=== PATIENT | male | born 1955 | race Caucasian/White ===

== ENCOUNTER 2019-10-18 02:50 | Day surgery (SDC) | payer BC ==
[2019-10-18] VITALS (8 sets, daily range): BP systolic 107–133; BP diastolic 53–86
[~2019-10-18] VITALS: Ht 180.3 cm; Wt 125.6 kg
--- OUTSIDE RECORDS SUMMARY | 2019-10-18 02:56 | XMS REPORT | Continuity of Care Document ---
Author Organization Unknown Address Unknown Phone Unavailable Allergies There is no data. Medications There is no data. Problems Date Dx Coded Attending Type Code Diagnosis Diagnosed By 02/13/2015 AARON ALMANZA DO Ot 724 .1 06/17/2016 AARON ALMANZA DO Ot 724 .1 PAIN IN THORACIC SPINE 06/18/2016 AARON ALMANZA DO Ot L98 .9 DISORDER OF THE SKIN AND SUBCUTANEOUS TI Procedures There is no data. Results Test Result Range Microscopic examination by JAZLYN preparati on - 06/17/16 10:15 JAZLYN RESULT NEGATIVE; NO FUNGAL ELEMENTS OBSERVED NRG Encounters ACCT No. Visit Date/Time Discharge Status Pt. Type Provider Facility Loc./Unit Complaint [id number] 06/17/2016 10:24:00 016 23:59:59 CLS Outpatient AARON ALMANZA DO [facility] LAB SKIN LESION [id number] 06/05/2016 09:26:00 016 23:59:59 CLS Preadmit DIONNE CEDENO, JESSI Navarrete [facility] WOUNDCARE [id number] 01/31/2015 15:59:00 015 23:59:59 CLS Outpatient AARON ALMANZA DO [facility] RAD THORACIC PAIN
[2019-10-18 03:12] LABS: BASOPHILS # (AUTO) 0.1 10^3/uL (0.0-0.1); BASOPHILS % (AUTO) 1 % (0-10); EOSINOPHILS # (AUTO) 1.2 10^3/uL (0.0-0.3); EOSINOPHILS % (AUTO) 7 % (0-10); HEMATOCRIT 47 % (40-54); LYMPHOCYTES # (AUTO) 4.2 X 10^3 (1.0-4.0); LYMPHOCYTES % (AUTO) 25 % (12-44); MEAN CORPUSCULAR HEMOGLOBIN 32 PG (25-34); MEAN CORPUSCULAR HGB CONC 34 G/DL (32-36); MEAN CORPUSCULAR VOLUME 95 FL (80-99); MONOCYTES # (AUTO) 1.6 X 10^3 (0.0-1.0); MONOCYTES % (AUTO) 9 % (0-12); NEUTROPHILS % (AUTO) 59 % (42-75); PLATELET COUNT 272 10^3/uL (130-400); RED CELL DISTRIBUTION WIDTH 13.7 % (10.0-14.5)
[2019-10-18] MEDS ORDERED: ASPIRIN 81 MG CHEW (CHILDREN'S ASA) PO ONE (03:15)
[2019-10-18] MEDS ORDERED: dilTIAZem DRIP PRE-MIX 125 ML IV SCH (03:15)
[2019-10-18 03:23] LABS: INR 0.9 (0.8-1.4); PROTHROMBIN TIME PATIENT 12.9 SEC (12.2-14.7)
[2019-10-18 03:32] LABS: ALANINE AMINOTRANSFERASE 45 U/L (0-55); ALBUMIN 4.5 GM/DL (3.2-4.5); ALKALINE PHOSPHATASE 72 U/L (40-136); BILIRUBIN,TOTAL 0.6 MG/DL (0.1-1.0); BUN/CREATININE RATIO 21; CALCIUM 9.7 MG/DL (8.5-10.1); CARBON DIOXIDE 24 MMOL/L (21-32); CHLORIDE 102 MMOL/L (98-107); CREATININE SERUM 1.17 MG/DL (0.60-1.30); GFR ESTIMATED > 60; GLUCOSE 209 MG/DL (70-105); MAGNESIUM 1.6 MG/DL (1.6-2.4); POTASSIUM 4.7 MMOL/L (3.6-5.0); SODIUM 139 MMOL/L (135-145); TOTAL PROTEIN 7.8 GM/DL (6.4-8.2)
[2019-10-18 03:34] LABS: BAND NEUTROPHILS 2 %; EOSINOPHILS % (MANUAL) 8 %; LYMPHOCYTES % (MANUAL) 19 %; MONOCYTES % (MANUAL) 10 %; NEUTROPHILS % (MANUAL) 61 %; RBC MORPH NORMAL
[2019-10-18] MEDS ORDERED: NS IV 1000 ML 1,000 ML IV ONE (03:40)
[2019-10-18 03:52] LABS: TSH (THYROID ANALYZER) 3.52 UIU/ML (0.35-4.94)
[2019-10-18] MEDS ORDERED: APIXABAN 5 MG (ELIQUIS) TABLET ONE (04:16)
--- NOTE | 2019-10-18 04:32 | ED Cardiac General ---
History of Present Illness General Chief Complaint: Chest Pain Stated Complaint: CP Nursing Triage Note: PT PRESENTS TO THE ED C/O HEART PALPITATIONS AND DIZZYNESS WITH RAPID HEART RATE. PT DENIES KNOWN HX OF SVT OR AFIB. DENIES CHEST PAIN, VERBALIZES CHEST PRESSURE AND FEELING HIS CHEST POUND IN HIS CHEST Source: patient Exam Limitations: no limitations (MARINA LAZO MD) History of Present Illness Date Seen by Provider: Oct 18, 2019 Time Seen by Provider: 02:[address] Diez presents to the emergency room with complaints of tachycardia since early in the day yesterday. He has had some mild associated chest pressure. He has no history of arrhythmia or cardiac disease. He has some associated dizziness. He found his heart rate to be in the 160-180 range at home. He recalls missing his usual dose of atenolol 100 mg on Friday night and Friday morning. He then took a 100 mg dose around noon yesterday. He then took 2 separate doses of 50 mg in the evening hours. NTG SL APPLICATIONS TESTER: No ASA po APPLICATIONS TESTER: No (MARINA LAZO MD) Allergies and Home Medications Allergies Coded Allergies: No Known Drug Allergies (Unverified , 10/18/19) Patient Home Medication List Home Medication List Reviewed: Yes (MARINA LAZO MD) Review of Systems Review of Systems Constitutional: no symptoms reported EENTM: No Symptoms Reported Respiratory: No Symptoms Reported Cardiovascular: See HPI Gastrointestinal: No Symptoms Reported Genitourinary: No Symptoms Reported Musculoskeletal: no symptoms reported Skin: no symptoms reported Psychiatric/Neurological: No Symptoms Reported Endocrine: No Symptoms Reported Hematologic/Lymphatic: No Symptoms Reported (MARINA LAZO MD) Past Xamkqpa-Rhvzba-Vpimjb Hx Past Med/Social Hx: Reviewed and Corrections made (MARINA LAZO MD) Patient Social History Alcohol Use: Denies Use Recreational Drug Use: No Smoking Status: Never a Smoker Recent Foreign Travel: No Contact w/Someone Who Travel: No Recent Infectious Disease Expo: No Recent Hopitalizations: No Physical Abuse: No Sexual Abuse: No Mistreated: No Fear: No (MARINA LAZO MD) Immunizations Up To Date Tetanus Booster (TDap): Unknown PED Vaccines UTD: Yes (MARINA LAZO MD) Seasonal Allergies Seasonal Allergies: No (MARINA LAZO MD) Past Medical History Surgeries: Yes (SOFT PALLET REPAIR) Respiratory: No Cardiac: Yes Hypertension Neurological: No Genitourinary: No Gastrointestinal: No Musculoskeletal: Yes Gout Endocrine: Yes Diabetes, Non-Insulin dep Are Your Blood Sugars Over 250: No HEENT: No Cancer: No Psychosocial: Yes (OCD) (MARINA LAZO MD) Physical Exam Vital Signs Vital Signs - First Documented (CHATO LEVIN MD) Vital Signs Capillary Refill : Less Than 3 Seconds (MARINA LAZO MD) Height, Weight, BMI Height: '" Weight: lbs. oz. kg; 34.00 BMI Method: General Appearance: No Apparent Distress, WD/WN, Obese HEENT: PERRL/EOMI, Normal ENT Inspection Neck: Normal Inspection; No JVD Respiratory: Lungs Clear, Normal Breath Sounds, No Accessory Muscle Use, No Respiratory Distress Cardiovascular: No Edema, No Murmur, Tachycardia Gastrointestinal: Soft, Distended Extremity: Normal Inspection, No Pedal Edema Neurologic/Psychiatric: Alert, Oriented x3, No Motor/Sensory Deficits, Normal Mood/Affect, playback operator II-XII Norm as Tested Skin: Normal Color, Warm/Dry (MARINA LAZO MD) Progress/Results/Core Measures Results/Orders Lab Results Laboratory Tests Test 10/18/19 03:00 10/18/19 03:02 10/18/19 06:00 Range/Units White Blood Count 17.0 H 4.3-11.0 10^3/uL Red Blood Count 4.96 4.35-5.85 10^6/uL Hemoglobin 16.0 13.3-17.7 G/DL Hematocrit 47 40-54 % Mean Corpuscular Volume 95 80-99 FL Mean Corpuscular Hemoglobin 32 25-34 PG Mean Corpuscular Hemoglobin Concent 34 32-36 G/DL Red Cell Distribution Width 13.7 10.0-14.5 % Platelet Count 272 130-400 10^3/uL Mean Platelet Volume 11.0 H 7.4-10.4 FL Neutrophils (%) (Auto) 59 42-75 % Lymphocytes (%) (Auto) 25 12-44 % Monocytes (%) (Auto) 9 0-12 % Eosinophils (%) (Auto) 7 0-10 % Basophils (%) (Auto) 1 0-10 % Neutrophils # (Auto) 10.0 H 1.8-7.8 X 10^3 Lymphocytes # (Auto) 4.2 H 1.0-4.0 X 10^3 Monocytes # (Auto) 1.6 H 0.0-1.0 X 10^3 Eosinophils # (Auto) 1.2 H 0.0-0.3 10^3/uL Basophils # (Auto) 0.1 0.0-0.1 10^3/uL Neutrophils % (Manual) 61 % Lymphocytes % (Manual) 19 % Monocytes % (Manual) 10 % Eosinophils % (Manual) 8 % Band Neutrophils 2 % Blood Morphology Comment NORMAL Prothrombin Time 12.9 12.2-14.7 SEC INR Comment 0.9 0.8-1.4 Activated Partial Thromboplast Time 30 24-35 SEC Sodium Level 139 135-145 MMOL/L Potassium Level 4.7 3.6-5.0 MMOL/L Chloride Level 102 98-107 MMOL/L Carbon Dioxide Level 24 21-32 MMOL/L Anion Gap 13 5-14 MMOL/L Blood Urea Nitrogen 25 H 7-18 MG/DL Creatinine 1.17 0.60-1.30 MG/DL Estimat Glomerular Filtration Rate > 60 BUN/Creatinine Ratio 21 Glucose Level 209 H 70-105 MG/DL Calcium Level 9.7 8.5-10.1 MG/DL Corrected Calcium 9.3 8.5-10.1 MG/DL Magnesium Level 1.6 1.6-2.4 MG/DL Total Bilirubin 0.6 0.1-1.0 MG/DL Aspartate Amino Transf (AST/SGOT) 35 H 5-34 U/L Alanine Aminotransferase (ALT/SGPT) 45 0-55 U/L Alkaline Phosphatase 72 40-136 U/L Myoglobin 69.8 10.0-92.0 NG/ML Troponin I 0.036 H 0.064 H <0.028 NG/ML Total Protein 7.8 6.4-8.2 GM/DL Albumin 4.5 3.2-4.5 GM/DL TSH [place] Testing 3.52 0.35-4.94 UIU/ML Glucometer 187 H 70-110 MG/DL (CHATO LEVIN MD) Medications Given in ED Current Medications Medications Dose Ordered Sig/Erica Route Start Time Stop Time Status Last Admin Dose Admin Aspirin 324 mg ONCE ONCE PO 10/18/19 03:15 10/18/19 03:16 DC 10/18/19 03:22 324 MG Diltiazem HCl 10 mg ONCE ONCE IVP 10/18/19 03:15 10/18/19 03:16 DC 10/18/19 03:07 10 MG Sodium Chloride 500 ml @ 0 mls/hr Q0M ONCE IV 10/18/19 04:58 10/18/19 04:59 DC 10/18/19 05:18 500 MLS/HR Sodium Chloride 1,000 ml @ 0 mls/hr Q0M ONCE IV 10/18/19 03:40 10/18/19 03:42 DC 10/18/19 03:30 1,000 MLS/HR (CHATO LEVIN MD) Vital Signs/I&O 10/18/19 10/18/19 02:52 02:52 Temp 36.6 Pulse 147 Resp 22 B/P (MAP) 132/98 (109) Pulse Ox 98 O2 Delivery Room Air Room Air (CHATO LEVIN MD) Blood Pressure Mean: 109 Progress Progress Note : Time: 04:30 Progress Note Patient was seen and examined. Heart rhythm was a narrow complex tachycardia at approximately 150 bpm. Atrial flutter was suspected. A Cardizem bolus was administered and patient immediately converted into a sinus rhythm with a bradycardia around 50 bpm. He remains in a sinus bradycardia now. Symptoms have improved significantly. Blood pressure was low normotensive. He received a liter of IV fluid which improved his blood pressures. I discussed the case with Dr. Wang. Given the patient's diabetes, he feels it would be best to anticoagulate. Eliquis has been ordered. He also recommended a 3 hour troponin. If the troponin remains fairly low, outpatient stress testing may be performed. If there is a significant jump in troponin, he recommends admission. (MARINA LAZO MD) Progress Note : Progress Note Assumed care of the patient at 0610 pending troponin recheck. This has been drawn now. Patient chest pain-free and in sinus rhythm currently. He is receiving IV fluid due to soft pressures after Cardizem administration. 0646: Patient is without chest pain. Blood pressure 117/60s currently. I did discuss the case with Dr. Wang due to patient's troponin increasing to 0.064. Given his underlying hypertension, diabetes and now elevating troponin, admission is indicated. He will do Lexiscan nuclear stress test today to further risk stratify the patient. I did discuss this with the nursing boat and plant utility supervisor who will set up the orders for that to get the appropriate equipment. I did discuss this with the patient and he agrees with plan for admission, observation status. We will keep him nothing by mouth for now. Dr. Wang will take him primary. Patient agrees to plan. (CHATO LEVIN MD) EKG #1: EKG Time: 02:54 Rate: 146 Rhythm: atrial tachycardia Comment Narrow complex tachycardia with no ST elevation or depression. Likely represents atrial flutter. EKG #2: EKG Time: 03:07 Rate: 59 Rhythm: S.Eric ECG Impression: Sinus Bradycardia Comment Borderline sinus bradycardia with right bundle branch block. No ST elevation or depression. No axis deviation. (MARINA LAZO MD) Diagnostic Imaging Diagonstic Imaging: Xray Plain Films/CT/US/NM/MRI: chest Comments Mild pulmonary venous congestion. No other acute abnormalities. Report not yet available. (MARINA LAZO MD) Departure Communication (Admissions) Time/Spoke to Admitting Phy: 06:46 (CHATO LEVIN MD) Impression Primary Impression: Atrial tachycardia Additional Impressions: Chest pressure Elevated troponin Disposition: ADMITTED INPATIENT Condition: Stable Admissions Decision to Admit Reason: Admit from ER (General) Decision to Admit/Date: Oct 18, 2019 Time/Decision to Admit Time: 06:46 (CHATO LEVIN MD) Departure-Patient Inst. Referrals: NO,LOCAL PHYSICIAN (PCP/Family) Primary Care Physician MARINA LAZO MD Oct 18, 2019 04:32 CHATO LEVIN MD Oct 18, 2019 07:12
[2019-10-18] MEDS ORDERED: NS IV 500 ML 500 ML IV ONE (04:58)
[2019-10-18] MEDS ORDERED: APIXABAN 5 MG (ELIQUIS) TABLET PO SCH ×3 (09:00→21:00)
[2019-10-18] MEDS ORDERED: LACTATED RINGERS 1,000 ML IV SCH ×2 (09:45→10:00)
[2019-10-18] MEDS ORDERED: REGADENOSON 0.4 MG/5 ML SYR (LEXISCAN) IV ONE ×2 (09:45→11:31)
[2019-10-18] MEDS ORDERED: CATHETER FLUSH 10 ML SYR IV PRN (11:00)
--- NOTE | 2019-10-18 12:05 | Diagnostic Imaging Report ---
EXAMINATION: Chest radiograph, portable AP view. DATE: 10/18/2019 4:10 AM hours. INDICATION: 63-year-old male, heart palpitations. COMPARISON: January 31, 2015. FINDINGS: Given differences in technique, the heart size and mediastinal contours are grossly unchanged. There is no identified pneumothorax. There is no large pleural effusion. There is no identified focal airspace consolidation. There are probable left carotid vascular calcifications. IMPRESSION: 1. No identified acute cardiopulmonary abnormality. Dictated by: Dictated on workstation # [id number]
--- NOTE | 2019-10-18 12:56 | History & Physicial-Cardiolgy ---
HPI-Cardiology Cardiology Consultation: Date of Consultation 10/18/19 Date of Admission Attending Physician Jefferson Wang MD Admitting Physician Katherine,Local Physician Consulting Physician Jefferson WANG MD HPI: Time Seen by a Provider: 12:30 Chief Complaint: Chest heaviness, palpitation, dizziness Dr Diez presented to the ER with complains of chest pressure/heaviness with palpitations/tachycardia. He denies active smoking. No pertinent family history. He has no previous history of cardiac disease. He does have history of diabetes and hypertension. Tachycardia was associated with dizziness. According to him his heart rate was in the 160s. He is on atenolol as an outpatient and had missed 2 dosages. When he came to the ER he was found to be in narrow complex tachycardia which was likely typical atrial flutter. He converted on his own to sinus rhythm with right bundle-branch block and T-wave inversions in the anterior precordial leads. He was also found to have positive troponin. Review of Systems-Cardiology Review of Systems Constitutional: As described under HPI; No As described under HPI, No no symptoms reported, No chills, No fever, No lightheadedness Eyes: No As described under HPI, No no symptoms reported, No blindness, No blurred vision, No contact lenses, No drainage, No decreased acuity, No foreign body sensation, No pain, No vision change Ears/Nose/Throat: No As described under HPI, No no symptoms reported, No chronic hearing loss, No ear discharge, No ear pain, No nasal drainage, No ulcerations Respiratory: No no symptoms reported; As described under HPI; No As described under HPI, No cough, No orthopnea, No shortness of breath, No SOB with excertion Cardiovascular: No no symptoms reported; As described under HPI; No As described under HPI; chest pain; No edema, No irregular heart rate, No lightheadedness; palpitations Gastrointestinal: No no symptoms reported, No As described under HPI, No abdomen distended, No abdominal pain, No blood streaked bowels, No constipation, No diarrhea, No nausea, No vomiting, No stool coloration changes Genitourinary: No As described under HPI, No burning, No dysuria, No discharge, No frequency, No flank pain, No hematuria, No urgency Skin: No rash, No skin related problems, No ulcerations Psychiatric/Neurological: No anxiety, No depression, No seizure, No focal weakness, No syncope Hematologic: No bleeding abnormalities LXZ-Qrtdze-Xghymy Hx Patient Social History Alcohol Use: Denies Use Recreational Drug Use: No Smoking Status: Never a Smoker Recent Foreign Travel: No Recent Infectious Disease Expo: No Hospitalization with Isolation: Denies Immunizations Up To Date Tetanus Booster (TDap): Unknown Date of Influenza Vaccine: Apr 20, 2019 Past Medical History PMH As described under Assessment. Allergies and Home Medications Allergies Coded Allergies: No Known Drug Allergies (Unverified , 10/18/19) Patient Home Medication List Home Medication List Reviewed: Yes Physical Exam-Cardiology Physical Exam Vital Signs/I&O 10/18/19 10/18/19 10/18/19 10/18/19 09:17 09:32 09:38 09:59 Temp 36.0 Pulse 61 66 60 Resp 18 18 B/P (MAP) 109/71 133/86 Pulse Ox 98 100 100 O2 Delivery Room Air Room Air 10/18/19 10/18/19 11:00 13:30 Pulse 63 Resp 16 B/P (MAP) 119/80 (93) Pulse Ox 93 O2 Delivery Room Air Room Air Capillary Refill : Less Than 3 Seconds Constitutional: appears stated age, AAO x 3; No apparent distress; well- developed, well-nourished HEENT: PERRL; No discharge; hearing is well preserved, oral hygience is good; No ulceration, No xanthelasmas are seen Neck: No carotid bruit; carotid pulses are 2 + bilaterally Respiratory: chest is bilaterally symmetric, lungs clear to auscultation Cardiovascular: regular rate-rhythm, S1 and S2 Gastrointestinal: soft, audible bowel sounds; No spleenomegaly Rectal: deferred Extremities: normal range of motion, non-tender, normal inspection; No clubbing, No cyanosis; no lower extremity edema bilateral; No significant edema Neurologic/Psychiatric: no motor/sensory deficits, alert, normal mood/affect, oriented x 3, power is 5/5 both on sides Skin: normal color; No rash, No ulcerations Data Review Labs Laboratory Tests 10/18/19 03:00: White Blood Count 17.0H, Red Blood Count 4.96, Hemoglobin 16.0, Hematocrit 47, Mean Corpuscular Volume 95, Mean Corpuscular Hemoglobin 32, Mean Corpuscular Hemoglobin Concent 34, Red Cell Distribution Width 13.7, Platelet Count 272, Mean Platelet Volume 11.0H, Neutrophils (%) (Auto) 59, Lymphocytes (%) (Auto) 25, Monocytes (%) (Auto) 9, Eosinophils (%) (Auto) 7, Basophils (%) (Auto) 1, Neutrophils # (Auto) 10.0H, Lymphocytes # (Auto) 4.2H, Monocytes # (Auto) 1.6H, Eosinophils # (Auto) 1.2H, Basophils # (Auto) 0.1, Neutrophils % (Manual) 61, Lymphocytes % (Manual) 19, Monocytes % (Manual) 10, Eosinophils % (Manual) 8, Band Neutrophils 2, Blood Morphology Comment NORMAL, Prothrombin Time 12.9, INR Comment 0.9, Activated Partial Thromboplast Time 30, Sodium Level 139, Potassium Level 4.7, Chloride Level 102, Carbon Dioxide Level 24, Anion Gap 13, Blood Urea Nitrogen 25H, Creatinine 1.17, Estimat Glomerular Filtration Rate > 60, BUN/Creatinine Ratio 21, Glucose Level 209H, Calcium Level 9.7, Corrected Calcium 9.3, Magnesium Level 1.6, Total Bilirubin 0.6, Aspartate Amino Transf (AST/SGOT) 35H, Alanine Aminotransferase (ALT/SGPT) 45, Alkaline Phosphatase 72, Myoglobin 69.8, Troponin I 0.036H, Total Protein 7.8, Albumin 4.5, TSH [place] Testing 3.52 10/18/19 03:02: Glucometer 187H 10/18/19 06:00: Troponin I 0.064H ECG Impression ECG Comment First EKG shows typical atrial flutter with 2-1 AV block. Second EKG shows sinus rhythm with right bundle-branch block and anterior T-wave inversions. A/P-Cardiology Assessment/Admission Diagnosis Non-STEMI, Typical atrial flutter, Diabetes, Hypertension, Leukocytosis, Mildly elevated LFTs Admission Status: Observation Plan Non-STEMI, borderline positive troponin with an upward trend. Considering that the patient has diabetes and hypertension with chest pain I have requested a nuclear stress test. If the nuclear stress test is abnormal, coronary angiography will be recommended. Typical atrial flutter, spontaneous conversion to sinus rhythm. Patient has a CHADSVASC of 2 due to diabetes and hypertension. Therefore oral anticoagulation is superior to aspirin alone. This was discussed at length with the patient. We will start Eliquis 5 mg twice a day. Typical atrial flutter ablation was recommended however due to the current COVID-19 situation, elective EP procedures are deferred to a later date. The patient understands the situation. I also spoke to him that at times patients that have typical atrial flutter can develop atrial fibrillation in the future. Diabetes, hold metformin just in case the patient needs an angiogram. Hypertension, atenolol. Leukocytosis, unclear etiology. Patient is afebrile. No infectious source. Borderline elevated LFTs, unclear etiology. Clinical Quality Measures AMI/AHF: ASA po Prior to arrival: No DVT/VTE Risk/Contraindication: Risk Factor Score Per Nursin RFS Level Per Nursing on Admit: 3=High Jefferson WANG MD Oct 18, 2019 12:56
[2019-10-18] MEDS: inSUlin ASPART (NovoLOG) 1 UNIT/0.01 ML (CHARGE PER UNIT) SC SCH ×2 (13:11→18:50)
[2019-10-18] MEDS ORDERED: NS IV 1000 ML 1,000 ML ONE (13:24)
[2019-10-18] MEDS ORDERED: LIDOCAINE 1% INJ 20 ML 20 ML VIAL ONE (15:08)
[2019-10-18] MEDS ORDERED: MIDAZOLAM 5 MG/5 ML (VERSED) VIAL ONE (15:08)
[2019-10-18] MEDS ORDERED: fentaNYL INJECTION 100 MCG/2 ML AMP ONE (15:08)
[2019-10-18] MEDS ORDERED: HEParin (CATH LAB) 2,000 ML IV ONE (15:09)
--- NOTE | 2019-10-18 15:33 | Cardiology Stress Test Report ---
Stress Test Report Type of NM Stress Test: Test Type: LEXISCAN 0.4MG/5ML Date of Procedure/Referring: Date of Procedure: Oct 18, 2019 PCP Jefferson Wang MD Admitting Physician No,Local Physician Indications: Chest pain, borderline positive troponin Baseline Heart Rate: 63 Baseline Blood Pressure: Blood Pressure Systolic: 119 Blood Pressure Diastolic: 80 Baseline EKG: Baseline EKG: Sinus rhythm with T-wave inversions in the anterior precordial leads. Summary & Conclusion: Summary: The patient was brought to the stress lab after informed consent was taken. Stress test was performed according to the Lexiscan protocol. 0.4 mg of IV Lexiscan was given. Low-grade exercise was performed. Baseline EKG showed sinus rhythm at 63 bpm and blood pressure was 129/76 mmHg. Maximum heart rate of 72 bpm and blood pressure 136/76 mmHg. Patient did not have any chest pain, arrhythmias or ST segment changes during the stress test. 10.90 mCi of Myoview were given for rest imaging and 33 mCi of Myoview given for stress imaging. Transient ischemic dilatation score 1.16, EF 68 percent. Normal wall motion. Moderate sized distal anterior/apical reversible defect. SSS 5, SRS 0, SDS 5. Conclusion: Pharmacological stress test was negative for ischemia. Normal LV function with no wall motion abnormalities. Possible apical ischemia, with diabetes, chest pain and borderline positive troponin, coronary angiography is recommended. Jefferson WANG MD Oct 18, 2019 15:33
[2019-10-18] MEDS ORDERED: HEParin 1000 UNIT/ML (10ML VIAL) FOR BOLUS ONE (15:40)
[2019-10-18] MEDS ORDERED: VERAPAMIL 5 MG/2 ML (CALAN) VIAL IV ONE (15:40)
[2019-10-18] MEDS ORDERED: NITRO DRIP 25000 MCG/D5W 250 ML IV ONE (15:41)
--- NOTE | 2019-10-18 16:01 | NUR ---
PT TO SOLDER MAKING SUPERVISOR WITH SOLDER MAKING SUPERVISOR STAFF. , ZAY, NOTIFIED.
--- NOTE | 2019-10-18 16:43 | Coronary Angiography Report ---
Coronary Angiography Report DATE OF PROCEDURE: 10/18/19 INDICATION: Chest pain, borderline positive troponin, apical reversible ischemia on stress test. PREOPERATIVE DIAGNOSIS: Chest pain, borderline positive troponin, apical reversible ischemia on stress test. POSTOPERATIVE DIAGNOSIS: CAD, no PCI. HISTORY: This is a 63-year-old gentleman with history of diabetes and hypertension who presented with atrial flutter and chest pain. Spontaneous conversion of atrial flutter to sinus rhythm. Borderline positive troponin. Nuclear stress test showed reversible apical defect. Therefore, the patient was scheduled for coronary angiography. PROCEDURES PERFORMED: 1.Coronary angiography. 2.Left heart catheterization. COMPLICATIONS: None. SPECIMENS: None. ESTIMATED BLOOD LOSS: 10 mL ANESTHESIA: Conscious sedation ANTICOAGULATION: IV heparin CONTRAST: 50 mL. FLUOROSCOPY: 4 minutes 50 seconds. FLOUROSCOPY DOSE: 927 mgy. PROCEDURE DETAILS: The patient is a 63 male and was brought to the clay processing labourer after informed consent was taken. All the risks and complications were explained in detail; this included the risk of bleeding, vascular damage, stroke, IL and even . The patient was draped and prepped in the usual sterile fashion. Access was gained in the right radial artery with a 6 [place] sheath. Coronary angiography and left heart catheterization was performed with the [place] catheter. FINDINGS: 1.Left main: Patent. 2.LAD: Mild diffuse disease with no focal stenosis. A diagonal artery has severe distal disease. However this is a very small caliber artery with a diameter of ~ 1mm. 3.Left circumflex artery: A large OM1 has mild proximal disease. A second small OM has tandem severe disease but again very small caliber artery with diameter 1 mm. 4.RCA: Large dominant RCA with mild to moderate distal disease. Moderate to severe ostial PL stenosis. The PDA divides up into 2 vessels. One branch that supplies the apex has moderate to severe proximal stenosis. Artery diameter is ~ 2 mm. 5.Left heart catheterization: 94/7 mmHg. 18 mmHg. Aortic pressure 80/49 mmHg. Normal LV function with no wall motion abnormalities. No gradient across the aortic valve. CONCLUSIONS: 1. Diffuse distal multivessel CAD. I've spoken at length to the patient and recommended aggressive medical therapy. If the patient continues to have exertional chest pain refractory to maximum medical therapy; we may consider PCI to the PDA. 2. Patient has typical atrial flutter and needs to be on Eliquis, therefore I will continue Plavix and Eliquis long-term. Beta woody, PETER inhibitor and high-dose Lipitor therapy. Patient will be discharged later today. Umm Wang MD, FACP, FACC, [facility] Interventional Cardiology Jefferson WANG MD Oct 18, 2019 16:43
[2019-10-18] MEDS ORDERED: PATIENT MAY USE OWN MEDS, ALL PO SCH (17:00)
[2019-10-18] MEDS ORDERED: NS IV 1000 ML 1,000 ML IV SCH (17:00)
[2019-10-18] MEDS ORDERED: APIX5TAB PO (17:05)
--- NOTE | 2019-10-18 17:05 | Discharge Inst-Post CATH ---
Discharge Inst-CATH/EP Problems Reviewed?: Yes Final Diagnosis Typical atrial flutter, diffuse CAD, medical therapy Post Cardiac Cath/EP D/C Inst Follow Up/Plan Follow with Dr. Wang in 4-6 weeks. <b>CARDIAC CATH/EP PROCEDURE DISCHARGE INSTRUCTIONS</b> ACTIVITY * Go Home directly and rest. * Limit activity of the leg (or wrist if it was used) for 7 days including aerobics, swimming, jogging, bicycling, etc. * Restrict stair-climbing for 7 days if possible, if not, climb up with your non-cath leg, then bring together on the same step. * Avoid lifting, pushing, pulling or excessive movement of the affected extremity for 7 days. * Customary sexual activity may be resumed after 2 days-use caution not to use a position that strains or causes pain to the affected extremity. * No driving for 24 hours. * NO SMOKING. * Avoid straining for bowel movements for 7 days. * Gentle walking on level ground is allowed. * Returning to work will depend on the type of procedure and the results. Your doctor will discuss this with you. CALL YOUR DOCTOR FOR ANY OF THE FOLLOWING: *If bleeding from the puncture site occurs- Apply gentle pressure to site with clean cloth and call your doctor or EMS. * If a knot or lump forms under the skin, increases in size, or causes pain. * If bruising appears to be worsening or moving further down your leg instead of disappearing. * Temperature above 101 F. CARE OF YOUR GROIN INCISION; * Bruising or purple discoloration of the skin near the puncture site is common. * You may shower only, no bathtub bathing for 5 days. Be careful to avoid slipping as your leg may feel stiff. * If a closure device was used on your femoral artery, please see the attached guide regarding care of the device and your leg. * Leave dressing on FOR 24 hours. CARE OF YOUR WRIST INCISION; * Bruising or purple discoloration of the skin near the puncture site is common. * You may shower. * DO NOT submerge wrist. * Leave dressing on FOR 24 hours. Jefferson WANG MD Oct 18, 2019 17:05
[2019-10-18] MEDS ORDERED: ATOR80TA76 PO (17:08)
[2019-10-18] MEDS ORDERED: CLOP75TA28 PO (17:09)
[2019-10-18] MEDS ORDERED: METO-451 PO (17:10)
[2019-10-18] MEDS ORDERED: LISI-552 PO (17:11)
--- NOTE | 2019-10-18 17:14 | Cardiology Discharge Summary ---
Diagnosis/Chief Complaint Date of Admission Oct 18, 2019 at 07:49 Date of Discharge 10/18/2019 Admission Diagnosis Typical atrial flutter, Chest pain with borderline positive troponin Final/Discharge Diagnosis Typical atrial flutter, Diffuse multivessel small vessel CAD Chief Complaint/HPI Chief Complaint/HPI Dr Mcwilliamstammie presented to the ER with complains of chest pressure/heaviness with palpitations/tachycardia. He denies active smoking. No pertinent family history. He has no previous history of cardiac disease. He does have history of diabetes and hypertension. Tachycardia was associated with dizziness. According to him his heart rate was in the 160s. He is on atenolol as an outpatient and had missed 2 dosages. When he came to the ER he was found to be in narrow complex tachycardia which was likely typical atrial flutter. He converted on his own to sinus rhythm with right bundle-branch block and T-wave inversions in the anterior precordial leads. He was also found to have positive troponin. Discharge Summary Procedures Coronary angiography FINDINGS: 1.Left main: Patent. 2.LAD: Mild diffuse disease with no focal stenosis. A diagonal artery has severe distal disease. However this is a very small caliber artery with a diameter of ~ 1mm. 3.Left circumflex artery: A large OM1 has mild proximal disease. A second small OM has tandem severe disease but again very small caliber artery with diameter 1 mm. 4.RCA: Large dominant RCA with mild to moderate distal disease. Moderate to severe ostial PL stenosis. The PDA divides up into 2 vessels. One branch that supplies the apex has moderate to severe proximal stenosis. Artery diameter is ~ 2 mm. 5.Left heart catheterization: 94/7 mmHg. 18 mmHg. Aortic pressure 80/49 mmHg. Normal LV function with no wall motion abnormalities. No gradient across the aortic valve. CONCLUSIONS: 1. Diffuse distal multivessel CAD. I've spoken at length to the patient and recommended aggressive medical therapy. If the patient continues to have exertional chest pain refractory to maximum medical therapy; we may consider PCI to the PDA. 2. Patient has typical atrial flutter and needs to be on Eliquis, therefore I will continue Plavix and Eliquis long-term. Beta woody, PETER inhibitor and high-dose Lipitor therapy. Patient will be discharged later today. Discharge Physical Examination Normal cardiovascular examination Hospital Course Was the Problem List Reviewed?: Yes Unremarkable. Discussion & Recommendations Discussion Discharge instructions discussed at length with the patient. Patient will be discharged on Plavix, Eliquis, lisinopril, beta woody and Lipitor. He will follow-up in the office after 4-6 weeks. Follow up appt.: Dr. Wang in 4-6 weeks. Dicharge Diet: Cardiac Diet Activity as Tolerated: Yes Home Medications Reviewed patient Home Medication Reconciliation performed by pharmacy medication reconciliations medical technician and/or nursing. Patients Allergies have been reviewed. Discharge Home Medications: Reviewed and agree with Discharge Medication list on patient's Discharge Instruction sheet Condition at discharge Stable. Instructions to patient/family Follow with Dr. Wang in 4-6 weeks. Clinical Quality Measures AMI/AHF: ASA po Prior to arrival: No DVT/VTE Risk/Contraindication: Risk Factor Score Per Nursin RFS Level Per Nursing on Admit: 3=High Jefferson WANG MD Oct 18, 2019 17:14
[2019-10-19] MEDS ORDERED: CLOPIDOGREL 75 MG (PLAVIX) TABLET PO SCH (09:00)
== END 2019-10-18 21:15 | disposition home or self-care (01) ==
LOC: EDUNIT# 02:50 → ER 02:52 → CSD 07:49 → CATH 07:49 → UNDOADMOB 07:49 → CSD 08:44 → CATH 21:15 → UNDODISOB 21:15
PROVIDERS: ATTEND Internal Medicine Interventional Cardiology
DX: I48.3 Typical atrial flutter (principal); I25.10 Atherosclerotic heart disease of native coronary artery without angina pectoris; E11.9 Type 2 diabetes mellitus without complications; I10 Essential (primary) hypertension; Z79.899 Other long term (current) drug therapy; D72.829 Elevated white blood cell count, unspecified; R74.8 Abnormal levels of other serum enzymes
CPT/HCPCS: 36415; 71045; 78452; 80053; 82962; 83735; 83874; 84443; 84484; 85007; 85027; 85610; 85730; 93005; 93017; 93041; 93306; 93458

== ENCOUNTER → 2021-09-13 | Outpatient (CLI) | payer MEDICARE ==
[~2021-09-13] MED LIST: APIX5TAB PO; ATOR80TA76 PO; CLOP75TA28 PO; LISI20TA26 PO; METO-451 PO
== END ==
LOC: LAB 11:21
PROVIDERS: ATTEND Family Medicine
DX: Z01.89 Encounter for other specified special examinations (principal)
CPT/HCPCS: 36415; 83036; 83525; 86141

== ENCOUNTER → 2022-03-26 | Outpatient (CLI) | payer MEDICARE | LOC: LAB 11:02 | PROVIDERS: ATTEND Family Medicine | DX: E29.1 Testicular hypofunction (principal); R53.1 Weakness | CPT/HCPCS: 36415; 84402; 84403 ==

== ENCOUNTER → 2022-05-10 | Outpatient (CLI) | payer MEDICARE ==
--- NOTE | 2022-05-10 11:13 | Diagnostic Imaging Report ---
INDICATION: Bilateral knee pain. Time of Exam: 10:12 AM 3 views of the right and 3 views of the left knee were obtained. Both the right left knees demonstrate degenerative changes. There is spurring of the tibial spines bilaterally. There is some flattening of the articular surface of the lateral femoral condyles bilaterally. There appears to be [id number] patellofemoral degenerative change as well. The joint space is fairly well-maintained. No fractures are seen. There is no joint effusion. IMPRESSION: Bilateral degenerative changes, as described. No acute bony abnormality is detected. Dictated by: Dictated on workstation # [id number]
== END ==
LOC: RAD 09:57
PROVIDERS: ATTEND Family Medicine
DX: M17.0 Bilateral primary osteoarthritis of knee (principal)

== ENCOUNTER → 2022-12-04 | Outpatient (CLI) | payer MEDICARE | LOC: CARD 10:00 | PROVIDERS: ATTEND Internal Medicine Cardiovascular Disease | DX: I51.7 Cardiomegaly (principal); I35.1 Nonrheumatic aortic (valve) insufficiency | CPT/HCPCS: C8929; C8930; 93306 ==